=== PATIENT | male | born 1990 ===

== ENCOUNTER 2019-03-11 19:44 | Emergency (ER) | payer SELFPAY ==
[~2019-03-11 19:44] MED LIST: Iopamidol-370 76% 500 ML 1 ML ONE
[2019-03-11 21:08] LABS: #Basophils 0.1 thou/uL (0.0-0.2); #Eosinphils 0.3 thou/uL (0.0-0.7); #Lymphocytes 5.5 thou/uL (1.20-3.40); #Monocytes 0.9 thou/uL (0.11-0.59); #Neutrophils 4.8 thou/uL (1.40-6.50); %Basophils 0.7 % (0.0-1.0); %Eosinophils 2.5 % (0.0-10.0); %Lymphocytes 47.3 % (21.0-51.0); %Monocytes 7.8 % (0.0-10.0); %Neutrophils 41.6 % (42.0-75.0); Hemoglobin 15.8 g/dL (14.0-18.0); Mean Corpuscular HGB CONC 34.3 g/dL (32.0-36.0); Mean Corpuscular Volume 90.2 fL (78.0-98.0); Mean Platelet Volume 7.5 fL (7.4-10.4); Platelet Count 238 thou/uL (130-400); RBC Distribution Width 11.8 % (11.5-14.5); White Blood Cell (WBC) Count 11.6 thou/uL (4.8-10.8)
[2019-03-11 21:29] LABS: ALT (SGPT) 53 U/L (8-55); AST (SGOT) 26 U/L (5-34); Albumin 3.8 g/dL (3.5-5.0); Alkaline Phosphatase 103 U/L (40-110); Anion Gap 14 mmol/L (10-20); BUN (Urea Nitrogen) 15 mg/dL (8.9-20.6); Bilirubin, Total 0.4 mg/dL (0.2-1.2); Calc. Creatinine Clearance 0 mL/min (70-130); Carbon Dioxide 21 mmol/L (22-29); Chloride 104 mmol/L (98-107); Estimated GFR-MDRD Greater than 90; Globulin 3.4 g/dL (2.4-3.5); Glucose 83 mg/dL (70-105); Lipase 29 U/L (8-78); Potassium 4.2 mmol/L (3.5-5.1); Protein, Total 7.2 g/dL (6.0-8.3); Sodium 135 mmol/L (136-145)
--- NOTE | 2019-03-11 21:30 | CT ---
CT ABODMEN AND PELVIS PERFORMED WITH CONTRAST ENHANCEMENT: Date: 03/11/2019 HISTORY: Abdominal pain, nausea, and vomiting. FINDINGS: The lung bases are clear of any infiltrative process. There are some fatty changes to the liver. The spleen, pancreas, and gallbladder regions all appear unremarkable. Right and left adrenal glands are normal in appearance. The right kidney is severely atrophic with de nse calcification compatible with a staghorn type calculus. No obstruction. Ureter is nondilated. The re is some mild hypertrophy to the left kidney, which is felt to be compensatory. There is no signifi cant periaortic or mesenteric adenopathy. CT of pelvis was performed with contrast. No adenopathy, mass, or free fluid. No inflammatory change in the region of the appendix. IMPRESSION: Atrophic right kidney with dense staghorn type calculus. POS: KIYA
[2019-03-11] MEDS ORDERED: Morphine 4 MG/ML VIAL ONE (22:06)
[2019-03-11] MEDS ORDERED: Ondansetron PF 4 MG/2 ML Vial ONE (22:06)
[2019-03-11 22:49] LABS: Bacteria/HPF 3+ HPF (None Seen); Bilirubin Negative (Negative); Blood, Urine Trace (Negative); Clarity Clear (Clear); Glucose, Urine (Dipstick) Normal (Negative); Leukocyte 500 Leu/uL (Negative); Nitrite 1+ (Negative); Protein, Urine (Dipstick) 20 mg/dL (Neg-Trace); Squamous Epithelial 0-3 HPF (0-3); Urobilinogen Normal mg/dL (Less than 2); WBC/HPF Greater than 50 HPF (0-3)
--- NOTE | 2019-03-11 23:17 | ULT ---
US Gallbladder RUQ HISTORY: Right upper quadrant pain COMPARISON: CT examination done earlier. FINDINGS: Real-time imaging of the right upper quadrant shows a contracted gallbladder there is gallb ladder wall thickening with the gallbladder wall measuring the 4 mm range. There is a nonshadowing echogenic area within the gallbladder which could represent a small polyp the patient was reportedly nothing by mouth for this examination. The visualized liver parenchyma shows no focal findings. The pancreas is obscured. An atrophic right kidney was staghorn type calculus is noted. IMPRESSION: Contracted gallbladder with gallbladder wall thickening and suggestion of a small polyp m easuring the 5 mm range. Further evaluation of gallbladder function with hepatobiliary scan may be helpful.
== END 2019-03-11 23:54 | disposition home or self-care (01) ==
LOC: ERS 19:44
DX: K59.00 Constipation, unspecified (principal); N39.0 Urinary tract infection, site not specified; F17.210 Nicotine dependence, cigarettes, uncomplicated; Z79.899 Other long term (current) drug therapy
CPT/HCPCS: 36415; 74177; 76705; 80053; 81003; 81015; 83690; 85025; 96360; 96361; J2270; J2405; Q9967